=== PATIENT | male | born 1985 ===

== ENCOUNTER 2016-08-29 14:56 | Emergency (ER) | payer OTHER ==
[2016-08-29 15:11] VITALS: BP 160/90; PULSE 79; RESP 20; TEMP 98.4; O2SAT 99
--- NOTE | 2016-08-29 16:11 | ED PDOC ---
HPI: Chest Pain Time Seen by Provider: 08/29/16 15:30 Chief Complaint (Nursing): Chest Pain Chief Complaint (Provider): Chest Pain History Per: Patient History/Exam Limitations: no limitations Onset/Duration Of Symptoms: Days Current Symptoms Are (Timing): Still Present Severity: Mild Quality: "Pain" Associated Symptoms: Dyspnea Modifying Factors: None Exacerbating Factors: None Alleviating Factors: None Additional Complaint(s): Patient is a 31 year old male who presents to ED for evaluation of chest pain, midsternal and intermittent for 1 week. Patient notes that 2 days ago he began to developed cough, sore throat, runny nose, subjective fever, unrelieved with dayquil. Patient notes cough is productive of yellow/green sputum with occasional blood streaking. Patient reports generalized fatigue, chills, SOB and weakness. Denies leg swelling Past Medical History Reviewed: Historical Data, Nursing Documentation, Vital Signs Vital Signs: Last Vital Signs Temp 98.4 F 08/29/16 15:08 Pulse 79 08/29/16 15:08 Resp 20 08/29/16 15:08 BP 160/90 H 08/29/16 15:08 Pulse Ox 99 08/29/16 16:14 - Medical History PMH: No Chronic Diseases - Surgical History Surgical History: Appendectomy - Family History Family History: States: No Known Family Hx - Social History Current smoker - smoking cessation education provided: Yes Alcohol: Social Drugs: Cannabis - Immunization History Hx Tetanus Toxoid Vaccination: No Hx Influenza Vaccination: Yes Hx Pneumococcal Vaccination: No - Home Medications Home Medications: Ambulatory Orders Medication Instructions Recorded Oseltamivir [Tamiflu] 75 mg PO BID #10 cap 08/29/16 - Allergies Allergies/Adverse Reactions: Allergies Allergy/AdvReac Type Severity Reaction Status Date / Time No Known Allergies Allergy Verified 05/10/14 14:42 Review of Systems ROS Statement: Except As Marked, All Systems Reviewed And Found Negative Constitutional: Positive for: Fever, Chills, Weakness (generalized) ENT: Positive for: Nose Discharge, Throat Pain. Negative for: Ear Pain Cardiovascular: Negative for: Chest Pain Respiratory: Positive for: Cough, Hemoptysis, Sputum. Negative for: Shortness of Breath Gastrointestinal: Negative for: Vomiting, Diarrhea Physical Exam - Reviewed Nursing Documentation Reviewed: Yes Vital Signs Reviewed: Yes - Physical Exam Appears: Positive for: Non-toxic (tired appearing), No Acute Distress Skin: Positive for: Normal Color, Warm. Negative for: Rash Eye Exam: Positive for: Normal appearance ENT: Positive for: Normal ENT Inspection (MMM), TM Is/Are (clear bilaterallt), Pharyngeal Erythema, Other (erythematous nasal turbinates). Negative for: Tonsillar Exudate, Tonsillar Swelling Neck: Positive for: Normal, Painless ROM Cardiovascular/Chest: Positive for: Regular Rate, Rhythm. Negative for: Murmur Respiratory: Positive for: Rhonchi (faint bilaterally). Negative for: Rales, Wheezing, Respiratory Distress Back: Positive for: Normal Inspection Extremity: Positive for: Normal ROM Neurologic/Psych: Positive for: Alert, Oriented - Laboratory Results Result Diagrams: 08/29/16 16:00 08/29/16 16:00 Interpretation Of Abn Labs: fLU b+ - ECG O2 Sat by Pulse Oximetry: 99 (RA) Pulse Ox Interpretation: Normal Medical Decision Making Medical Decision Making: Time: 1545 Initial impression: R/O influenza and pneumonia Initial plan: -- EKG -- BnP -- CMP -- Magnesium -- Phosphorous -- Troponin -- CBC -- D-Dimer -- CXR -- Toradol, Tylenol and Tamiflu -- Flu swab Accession No. 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 LUNGS: No focal consolidation. Scattered probable calcified granulomas. Please note that chest x-ray has limited sensitivity for the detection of pulmonary masses. PLEURA: No significant pleural effusion identified. No definite pneumothorax . CARDIOVASCULAR: Heart size appears within normal limits. OSSEOUS STRUCTURES: No acute osseous abnormality identified. VISUALIZED UPPER ABDOMEN: Unremarkable. OTHER FINDINGS: None. IMPRESSION: No focal consolidation, significant pleural effusion, or definite pneumothorax identified. Scribe Attestation: Documented by Laura Sims acting as a scribe for Belem Kennedy MD MD Scribe Attestation: All medical record entries made by the Scribe were at my direction and personally dictated by me. I have reviewed the chart and agree that the record accurately reflects my personal performance of the history, physical exam, medical decision making, and the department course for this patient. I have also personally directed, reviewed, and agree with the discharge instructions and disposition. Disposition - Clinical Impression Clinical Impression: Influenza Counseled Patient/Family Regarding: Studies Performed, Diagnosis, Need For Followup, Rx Given - Disposition Referrals: [facility] [Outside] ([facility] TOMORROW MORNING TO SETUP FOLLOW UP PPOINTMENT WITH PRIMARY CARE PROVIDER IN 1-2 WEEKS) Disposition: Routine/Home Disposition Time: 17:00 Condition: GOOD Additional Instructions: DRINK PLENTY OF HYDRATING FLUIDS AND REST TAKE TYLENOL AND/OR IBUPROFEN NEEDED FOR FEVER AND ACHES Prescriptions: Oseltamivir [Tamiflu] 75 mg PO BID #10 cap Instructions: Influenza (ED) Forms: [facility] ED School/Work Excuse
[2016-08-29 16:21] LABS: BASO # 0.1 K/uL (0.0-0.2); BASO % 1.1 % (0.0-2.0); EOS # 0.2 K/uL (0.0-0.7); EOS % 2.7 % (0.0-4.0); LYMPH # 1.6 K/uL (1.0-4.3); LYMPH % 26.7 % (20.0-40.0); MEAN CELL VOLUME 85.9 fl (80.0-94.0); MEAN CORPUSCULAR HEMOGLOBIN 28.9 pg (27.0-31.0); MEAN CORPUSCULAR HGB CONC 33.6 g/dL (33.0-37.0); MONO # 0.6 K/uL (0.0-0.8); MONO % 10.3 % (0.0-10.0); NEUT # 3.6 K/uL (1.8-7.0); NEUT % 59.2 % (50.0-75.0); RED CELL DISTRIBUTION WIDTH 13.3 % (11.5-14.5)
[2016-08-29 16:41] LABS: ALB/GLOB RATIO 1.2 (1.0-2.1); ALKALINE PHOSPHATASE 64 U/L (38-126); ALT/SGPT 104 U/L (21-72); AST/SGOT 58 U/L (17-59); BILIRUBIN,TOTAL 0.9 mg/dl (0.2-1.3); BLOOD UREA NITROGEN 12 mg/dl (9-20); CALCIUM 9.7 mg/dL (8.4-10.2); CARBON DIOXIDE 27 mmol/L (22-30); CHLORIDE 100 mmol/L (98-107); GFR AFRICAN-AMERICAN > 60; GLUCOSE,RANDOM 200 mg/dL (75-110); MAGNESIUM 2.2 MG/DL (1.6-2.3); PHOSPHOROUS 3.5 mg/dl (2.5-4.5); POTASSIUM 4.2 MMOL/L (3.6-5.0); SODIUM 141 mmol/l (132-148); TOTAL PROTEIN 7.9 G/DL (6.3-8.2)
--- NOTE | 2016-08-29 16:59 | RAD ---
HISTORY: cp sob COMPARISON: Chest x-ray performed 07/27/12 TECHNIQUE: Chest PA and lateral FINDINGS: Examination limited by habitus. LUNGS: No focal consolidation. Scattered probable calcified granulomas. Please note that chest x-ray has limited sensitivity for the detection of pulmonary masses. PLEURA: No significant pleural effusion identified. No definite pneumothorax . CARDIOVASCULAR: Heart size appears within normal limits. OSSEOUS STRUCTURES: No acute osseous abnormality identified. VISUALIZED UPPER ABDOMEN: Unremarkable. OTHER FINDINGS: None. IMPRESSION: No focal consolidation, significant pleural effusion, or definite pneumothorax identified.
--- NOTE | 2016-08-30 18:58 | CARD ---
APPROVED REPORT EKG Measurement Heart [id number] CO [id number] [id number] <Conclusion> Normal sinus rhythm Normal ECG
== END 2016-08-29 17:29 | disposition home or self-care (01) ==
LOC: H.ER 14:56
DX: R07.9 Chest pain, unspecified (principal); J11.1 Influenza due to unidentified influenza virus with other respiratory manifestations; R05 Cough; J02.9 Acute pharyngitis, unspecified; R50.9 Fever, unspecified